=== PATIENT | female | born 1960 | race Hispanic/Latino ===

== ENCOUNTER 2017-02-01 12:17 | Emergency (ER) | payer SELFPAY ==
[~2017-02-01] VITALS: Ht 165.1 cm; Wt 54.0 kg
[2017-02-01] MEDS ORDERED: LORAZEPAM0.5 MG PO (12:31)
[2017-02-01] MEDS ORDERED: WELLBUTRIN SR150 MG PO (12:31)
[2017-02-01] MEDS ORDERED: SEROQUEL25 MG PO (12:31)
[2017-02-01 12:57] LABS: HEMATOCRIT 38.6 % (37.0-47.0); HEMOGLOBIN 12.7 g/dl (12.0-16.0); IMMATURE GRANULOCYTES 0.2 % (0.0-1.0); MEAN CORPUSCULAR HGB CONC 32.9 g/L CALC (32.0-36.0); NEUT# 6.87 thou/uL (2.00-7.15); RED BLOOD COUNT 4.54 mill/uL (4.20-5.60); RED CELL DISTRI WIDTH 13.8 % (11.5-15.5)
[2017-02-01 13:09] LABS: ANION GAP 14 (6-22 (CALC)); BUN 14 mg/dL (7-17); BUN/CREATININE RATIO 14 (12-20 (CALC)); CALCIUM 9.5 mg/dL (8.4-10.2); CARBON DIOXIDE 25 mmol/l (22-30); CHLORIDE 107 mmol/l (95-108); ETHYL ALCOHOL 0 mg/dl (0-30); GFR 58 ML/MIN (>=60 (CALC)); GFR FOR AFR.AMER. > 60 ML/MIN (>=60 (CALC)); GLUCOSE 95 mg/dL (65-105); POTASSIUM 3.7 mmol/l (3.5-5.1); SODIUM 142 mmol/l (137-146)
[2017-02-01 13:26] LABS: BETA-HCG, QUANT(RESULT NUMBER) <2 mIU/mL
[2017-02-01 15:33] VITALS: BP 149/90
== END 2017-02-01 15:42 | disposition home or self-care (01) | DRG 556 ==
LOC: ED 12:17
PROVIDERS: Family Medicine
DX: M25.551 Pain in right hip (principal); V28.4XXA Motorcycle driver injured in noncollision transport accident in traffic accident, initial encounter
CPT/HCPCS: Q9967